=== PATIENT | female | born 1955 | race Caucasian/White ===

== ENCOUNTER 2021-03-17 12:52 | Outpatient (CLI) | payer BC | END 2021-03-17 23:59 | disposition home or self-care (01) | LOC: 64 CT 12:52 | PROVIDERS: ATTEND Family Medicine | DX: R59.1 Generalized enlarged lymph nodes (principal) | CPT/HCPCS: 70490 ==

== ENCOUNTER 2022-01-28 07:46 | Emergency (ER) | payer BC, MEDICARE ==
[~2022-01-28] VITALS: Ht 160 cm; Wt 61.0 kg
[2022-01-28 07:57] VITALS: BP 163/69
== END 2022-01-28 09:30 | disposition home or self-care (01) ==
LOC: EEVIPCON 07:47 → ER 07:47
DX: S93.401A Sprain of unspecified ligament of right ankle, initial encounter (principal); W19.XXXA Unspecified fall, initial encounter; Y93.89 Activity, other specified; Y92.89 Other specified places as the place of occurrence of the external cause; Y99.8 Other external cause status; I10 Essential (primary) hypertension
CPT/HCPCS: 29515; 73610; 99284

== ENCOUNTER 2022-07-06 13:26 | Emergency (ER) | payer BC, MEDICARE ==
[~2022-07-06] VITALS: Ht 160 cm; Wt 62.3 kg
[2022-07-06 15:11] LABS: BASOPHILS % (AUTO) 0.5 % (0-1); EOSINOPHILS # (AUTO) 0.1 X10'3 (0-0.9); EOSINOPHILS % (AUTO) 1.4 % (0-6); HEMATOCRIT 39.7 % (35.0-45.0); HEMOGLOBIN 13.5 g/dl (12.0-16.0); LYMPHOCYTES % (AUTO) 42.4 % (21-51); MEAN CORPUSCULAR HEMOGLOBIN 28.2 PG (27.0-31.0); MEAN CORPUSCULAR VOLUME 82.9 FL (78-98); MEAN PLATELET VOLUME 8.4 FL (7.4-10.4); MONOCYTES # (AUTO) 0.8 X10'3 (0-0.9); MONOCYTES % (AUTO) 10.8 % (2-12); NEUTROPHILS # (AUTO) 3.1 X10'3 (1.8-7.7); NEUTROPHILS % (AUTO) 44.9 % (42-75); PLATELET COUNT 201 X10'3 (140-440); RED BLOOD COUNT 4.78 X10'6 (4.20-5.60); RED CELL DISTRIBUTION WIDTH 13.8 % (11.5-14.5)
[2022-07-06 15:23] LABS: APTT 26 SECONDS (22-32)
[2022-07-06 15:28] LABS: CHLORIDE 107 MMOL/L (99-107); GLUCOSE 88 MG/DL (70-104); POTASSIUM 3.7 MMOL/L (3.5-5.1); SODIUM 143 MMOL/L (135-145); TOTAL CARBON DIOXIDE 28.5 MMOL/L (24-32)
[2022-07-06 15:29] LABS: ALANINE AMINOTRANSFERASE 54 U/L (12-78); ALBUMIN 3.9 G/DL (3.4-5.0); ALBUMIN/GLOBULIN RATIO 1.1 (1.1-1.5); ALKALINE PHOSPHATASE 60 IU/L (46-116); ANION GAP 8 (8-16); ASPARTATE AMINO TRANSFERASE 42 U/L (10-37); BILIRUBIN,TOTAL 0.4 MG/DL (0.1-1.0); BLOOD UREA NITROGEN 24 MG/DL (7-18); BUN/CREATININE RATIO 27.6 (6.6-38.0); CALCIUM 8.8 MG/DL (8.5-10.1); CREATININE 0.87 MG/DL (0.40-0.90); TOTAL PROTEIN 7.6 G/DL (6.4-8.2); eGFR 65 ML/MIN
[2022-07-06] MEDS ORDERED: ketorolac trometh inj. 60 MG/2 ML VIAL IM ONE (16:15)
[2022-07-06 16:37] VITALS: BP 211/116
== END 2022-07-06 16:41 | disposition home or self-care (01) ==
LOC: ER 13:26
DX: R22.42 Localized swelling, mass and lump, left lower limb (principal); M25.562 Pain in left knee; I10 Essential (primary) hypertension; Z88.1 Allergy status to other antibiotic agents
CPT/HCPCS: 36415; 80053; 85025; 85610; 85730; 93971; 96372; 99284; J1885

== ENCOUNTER 2022-09-02 08:36 | Outpatient (CLI) | payer BC, MEDICARE | END 2022-09-02 23:59 | disposition home or self-care (01) | LOC: RAD 08:36 | PROVIDERS: ATTEND Family Medicine | DX: S83.412A Sprain of medial collateral ligament of left knee, initial encounter (principal); S83.512A Sprain of anterior cruciate ligament of left knee, initial encounter; M12.88 Other specific arthropathies, not elsewhere classified, other specified site; M71.22 Synovial cyst of popliteal space [Baker], left knee; X58.XXXA Exposure to other specified factors, initial encounter; Y93.89 Activity, other specified; Y92.89 Other specified places as the place of occurrence of the external cause; Y99.8 Other external cause status | CPT/HCPCS: 73721 ==

== ENCOUNTER 2024-03-04 18:26 | Emergency (ER) | payer BC, MEDICARE ==
[~2024-03-04] VITALS: Ht 160 cm; Wt 63.6 kg
[2024-03-04 18:35] VITALS: BP 186/89; PULSE 80; O2SAT 100
[2024-03-04] MEDS: oxyCODONE/APAP 5-325mg tablet PO ONE (20:22)
[2024-03-04] MEDS ORDERED: OXYC-145 PO (20:23)
[2024-03-04 20:24] VITALS: RESP 14
[2024-03-05] MEDS ORDERED: OXYC-145 PO (11:22)
== END 2024-03-04 21:03 | disposition home or self-care (01) ==
LOC: ER 18:27
DX: S52.501A Unspecified fracture of the lower end of right radius, initial encounter for closed fracture (principal); I10 Essential (primary) hypertension; Z88.1 Allergy status to other antibiotic agents; Z79.899 Other long term (current) drug therapy; W19.XXXA Unspecified fall, initial encounter; Y93.89 Activity, other specified; Y92.89 Other specified places as the place of occurrence of the external cause; Y99.8 Other external cause status
CPT/HCPCS: 29125; 73110; 99284; A6446; A6449

== ENCOUNTER 2025-03-14 15:34 | Outpatient (CLI) | payer MEDICARE, BC ==
[~2025-03-14 15:34] MED LIST: OXYC-145 PO
--- NOTE | 2025-03-14 19:47 | RADIOLOGY REPORT ---
EXAM: MR MRI UPPER EXTREMITY RIGHT HISTORY: PAIN IN RIGHT WRIST COMPARISON: None TECHNIQUE: Multiplanar, multisequence MRI of the right wrist was performed. FINDINGS: Extensor tendons: Mild fluid distention of the 1st, 2nd, 4th and 6th extensor compartment tendon stewart ths.. Abductor pollicis longus and extensor carpi ulnaris Tendinosis without definite tear. Flexor tendons: Unremarkable. Intercarpal ligaments: Scapholunate and lunotriquetral ligaments appear intact. Triangular fibrocartilage: The ulnar attachment of the TFCC is torn. Moderate distal radioulnar joint effusion noted. Carpal tunnel: Unremarkable. Median nerve is normal. Guyon's canal: Unremarkable. Ulnar nerve is normal. Joints: Unremarkable. Bone marrow: Old impacted healed fracture of distal radial metaphysis with resultant ulnar positive v ariance. A 0.5 cm bony protuberance seen arising from the volar aspect of distal radial metaphysis th at could be an osteochondroma or heterotopic ossification related to the fracture. Shyla's tubercle is prominent. Old nonunited avulsion fracture of the ulnar styloid process. Mild subchondral marrow edema in triquetrum noted. Musculature: Thenar, hypothenar and intrinsic muscles of the hand are within normal limits. Other: None. IMPRESSION: 1. Old healed impacted distal radial metaphysis fracture with resultant ulnar positive variance and a ssociated TFCC tear and developing ulnar comparable impaction syndrome. 2. Extensor compartment mild tendinosis and tenosynovitis with no evidence for tendon tear.
== END 2025-03-14 23:59 | disposition home or self-care (01) ==
LOC: MRI02 15:34
PROVIDERS: ATTEND Physician Assistant
DX: S52.611K Displaced fracture of right ulna styloid process, subsequent encounter for closed fracture with nonunion (principal); S52.501P Unspecified fracture of the lower end of right radius, subsequent encounter for closed fracture with malunion; M25.531 Pain in right wrist; M77.8 Other enthesopathies, not elsewhere classified; M65.831 Other synovitis and tenosynovitis, right forearm; X58.XXXD Exposure to other specified factors, subsequent encounter
CPT/HCPCS: 73221